=== PATIENT | female | born 1950 | race Caucasian/White ===

== ENCOUNTER 2017-10-09 09:29 | Observation (INO) | payer OTHER, SELFPAY ==
[2017-10-09] VITALS (9 sets, daily range): BP systolic 110–146; BP diastolic 66–91; PULSE 64–85; RESP 10–20; TEMP 36.4–36.9; O2SAT 96–100; BMI 28.2
--- NOTE | 2017-10-09 10:00 | DI.RAD.S_ITS ---
PROCEDURE: XR CHEST 2V INDICATIONS: 67 year-old female with intermittent chest pain for one week. TECHNIQUE: 2 views of the chest were acquired. COMPARISON: None. FINDINGS: Surgical changes and devices: None. Lungs and pleura: No pleural effusions or pneumothorax. Lungs are clear. Mediastinum: Mediastinal contours are normal. Heart size is normal. Bones and chest wall: No suspicious bony abnormalities. Soft tissues appear unremarkable. IMPRESSION: No acute cardiopulmonary disease. Dictated by: Cj Garcia M.D. on 10/09/2017 at 10:17 Approved by: Cj Garcia M.D. on 10/09/2017 at 10:17
[2017-10-09 10:09] LABS: Add Manual Diff / Slide Review NO; Basophils Percent Auto 1.3 % (0-2); Eosinophils Percent Auto 12.8 % (2-4); Hematocrit 38.5 % (36-46); Hemoglobin 13.2 g/dL (12.0-16.0); Mean Corpuscular HGB Conc 34.2 % (30-36); Mean Corpuscular Hemoglobin 30.8 PG (26-34); Mean Corpuscular Volume 90.1 fL (80-100); Monocytes Percent Auto 10.4 % (3-14); Neutrophils Absolute Auto 2300 /uL (3000-5900); Neutrophils Percent Auto 38.5 % (50-75); Platelet Count 215 X10^3/uL (150-400); Red Blood Cell Count 4.28 X10^6/uL (4.0-5.2); Red Cell Distribution Width 13.1 % (11.6-14.8); White Blood Cell Count 5.9 X10^3/uL (4.5-11.0)
[2017-10-09 10:18] LABS: Alanine Aminotransferase 19 IU/L (9-52); Albumin Globulin Ratio 1.4 (1.0-2.8); Alkaline Phosphatase 69 U/L (38-126); Aspartate Aminotransferase 23 IU/L (14-36); BUN Creatinine Ratio 21.4 (6-22); Bilirubin Total 0.6 mg/dL (0.2-1.3); Calcium 9.5 mg/dL (8.4-10.2); Estimated Glomerular Filt Rate > 60.0 mL/min (>60); Globulin 2.8 g/dL (1.7-4.1); Glucose 101 mg/dL (80-110); HEMOLYSIS 18 (0-50); Lipase 73 U/L (23-300); Potassium 4.6 mmol/L (3.4-5.1); Sodium 138 mmol/L (137-145); Total Protein 6.8 g/dL (6.3-8.2)
[2017-10-09] MEDS: ASPIRIN 81 MG TAB 324 MG PO (10:26)
[2017-10-09 10:31] LABS: B Type Natriuretic Peptide < 5.0 (<100); D Dimer < 200 ng/mL (<231); Troponin I < 0.012 ng/mL (0.01-0.034)
[2017-10-09 12:21] LABS: Troponin I < 0.012 ng/mL (0.01-0.034)
--- NOTE | 2017-10-09 13:38 | ED_ITS ---
HPI - Chest Pain General Chief Complaint: Chest Pain Stated Complaint: CHEST PAIN History of Present Illness HPI narrative: HPI 67 female presents for evaluation of 2-3 days intermittent burning epigastric pain as well as sharp/dull left subpectoral pain that is occurring without clear provoking or relieving factors, pain is woken patient from sleep, was greatest at 6 AM prior to arrival. 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 Patient notes 2 to 3 months of mild bilateral lower extremity edema. Patient is a never smoker. Patient has hyperlipidemia and hypothyroidism. Patient reports one stress test many years prior. Patient denies recent immobilization, leg trauma, estrogen use, surgery in the last four weeks, hemoptysis, or malignancy in the last 6 months. M/S/F/SocHx notable for: please see HPI; remainder reviewed with patient and in chart. ROS: Negative constitutional, eye, cardiovascular, pulmonary, GI, , MSK, skin , neurologic, psychiatric, endocrine unless noted in the HPI. Exam Gen: Pleasant, non-toxic appearing, resting comfortably. HEENT: NC, AT, PEERL, EOMI. Resp: Clear to auscultation bilaterally, normal work of breathing. Card: RRR with no M/R/G, no crackles in lung bases, 1+ bilateral pedal edema to the mid calves, no JVD appreciated. GI: NT/ND Vascular: Both ankles, calves, and thighs of equal size, no calf tenderness to palpation bilaterally. MSK: No chest wall TTP. No visible deformities, strength and tone WNL. Skin: Normal color with no visible lesions. Neuro: AO x 3, no facial asymmetry, vision and hearing WNL. Psych: Mood and affect appropriate. Labs / Imaging (pertinent): WBC 5.9, Hb 13.2, Na 138, K 4.6. Troponin (0945)< 0.012, troponin (1:45 AM) < 0.012 BNP <5.0 d-dimer < 200 EKG: SR at 72 bpm, no DE segment depressions, no new ST segment changes, new LBBB, or T-wave changes that would suggest acute ischemia. CXR: No acute cardiopulmonary disease process. MDM Previous chart, nursing note, and vitals reviewed. A: 67 female presents for evaluation of 2-3 days intermittent burning epigastric pain as well as sharp/dull left subpectoral pain that is occurring without clear provoking or relieving factors, pain is woken patient from sleep, was greatest at 6 AM prior to arrival. DDx and Evaluation: * ACS - doubt ACS given a non-ischemic EKG and negative serial troponins. * UA - concern exists for unstable angina, HEART score 5 (Hx - 2, EKG - 0, age - 2, risk factors - 1, troponin - 0; 30 day MACE: 5). * Pericarditis - consider pericarditis unlikely given the lack of DE segment depressions as well as the absence of diffuse ST-segment elevations, lack of reduction of pain when supine, and lack of a friction rub. * Myocarditis - unlikely given the negative troponin and an EKG without characteristic DE-segment or ST-segment changes. * Dissection - dissection is unlikely given symptoms, and lack of mediastinal widening. * PE - Wells' (Signs & Sx of DVT - 0, PE is #1 or equally likelihood - 0, HR > 100 - 0, immobilization of >=3 days or surgery in last 28 days - 0, prior DVT or PE - 0, hemoptysis - 0, malignancy w/ tx in last 6 mo or palliative - 0) 0; as such the patient's negative d-dimer is appropriate for risk stratification/ rule out. * Mediastinal Air - no evidence by CXR or auscultation. * Pneumothorax - no evidence by CXR or physical exam. * MSK - doubt given lack of reproducibility on exam. * Endocarditis - no identifiable risk factors, patient afebrile, no new murmurs appreciated on exam; doubt. * GI (Esophageal rupture, GERD) - esophageal rupture effectively excluded given the lack of mediastinal widening, non-toxic appearance, and lack of identifiable risk factors. While not definitively excluded, further evaluation of GERD is deferred to an outpatient setting. ED Course: Patient given ASA. Vital signs remained stable and within clinically acceptable limits. Disposition: patient admitted for stress test. Impression: Chest Pain. (please reference below for remainder of encounter information) Related Data Home Medications Medication Instructions Recorded Confirmed levothyroxine 100 mcg PO DAILY 10/09/17 10/09/17 Allergies Allergy/AdvReac Type Severity Reaction Status Date / Time No Known Drug Allergies Allergy Verified 10/09/17 10:07 MDM - Chest Pain Lab Data Result diagrams: 10/09/17 09:45 10/09/17 09:45 Lab Results 10/09/17 10/09/17 10/09/17 Range/Units 09:45 09:45 09:45 WBC 5.9 (4.5-11.0) X10^3/uL RBC 4.28 (4.0-5.2) X10^6/uL Hgb 13.2 (12.0-16.0) g/dL Hct 38.5 (36-46) % MCV 90.1 (80-100) fL MCH 30.8 (26-34) PG MCHC 34.2 (30-36) % RDW 13.1 (11.6-14.8) % Plt Count 215 (150-400) X10^3/uL Neut % (Auto) 38.5 L (50-75) % Lymph % (Auto) 37.0 (25-40) % Routt % (Auto) 10.4 (3-14) % Eos % (Auto) 12.8 H (2-4) % Baso % (Auto) 1.3 (0-2) % Neut # (Auto) 2300 L (5825-5325) /uL D-Dimer < 200 (<231) ng/mL Sodium 138 (137-145) mmol/L Potassium 4.6 (3.4-5.1) mmol/L Chloride 101.0 (98-107) mmol/L Carbon Dioxide 29.0 (22-32) mmol/L BUN 15.0 (7-17) mg/dL Creatinine 0.70 (0.52-1.04) mg/dL Estimated GFR > 60.0 (>60) mL/min BUN/Creatinine Ratio 21.4 (6-22) Glucose 101 (80-110) mg/dL Calcium 9.5 (8.4-10.2) mg/dL Total Bilirubin 0.6 (0.2-1.3) mg/dL AST 23 (14-36) IU/L ALT 19 (9-52) IU/L Alkaline Phosphatase 69 (38-126) U/L Troponin I < 0.012 (0.01-0.034) ng/mL B-Natriuretic Peptide < 5.0 L (<100) Total Protein 6.8 (6.3-8.2) g/dL Albumin 4.0 (3.5-5.0) g/dL Globulin 2.8 (1.7-4.1) g/dL Albumin/Globulin Ratio 1.4 (1.0-2.8) Lipase 73 (23-300) U/L 10/09/17 Range/Units 11:45 WBC (4.5-11.0) X10^3/uL RBC (4.0-5.2) X10^6/uL Hgb (12.0-16.0) g/dL Hct (36-46) % MCV (80-100) fL MCH (26-34) PG MCHC (30-36) % RDW (11.6-14.8) % Plt Count (150-400) X10^3/uL Neut % (Auto) (50-75) % Lymph % (Auto) (25-40) % [place] % (Auto) (3-14) % Eos % (Auto) (2-4) % Baso % (Auto) (0-2) % Neut # (Auto) (7935-5391) /uL D-Dimer (<231) ng/mL Sodium (137-145) mmol/L Potassium (3.4-5.1) mmol/L Chloride (98-107) mmol/L Carbon Dioxide (22-32) mmol/L BUN (7-17) mg/dL Creatinine (0.52-1.04) mg/dL Estimated GFR (>60) mL/min BUN/Creatinine Ratio (6-22) Glucose (80-110) mg/dL Calcium (8.4-10.2) mg/dL Total Bilirubin (0.2-1.3) mg/dL AST (14-36) IU/L ALT (9-52) IU/L Alkaline Phosphatase (38-126) U/L Troponin I < 0.012 (0.01-0.034) ng/mL B-Natriuretic Peptide (<100) Total Protein (6.3-8.2) g/dL Albumin (3.5-5.0) g/dL Globulin (1.7-4.1) g/dL Albumin/Globulin Ratio (1.0-2.8) Lipase (23-300) U/L Discharge Plan Departure Prescriptions: No Action levothyroxine 100 mcg Tablet 100 mcg PO DAILY RF: 0
--- NOTE | 2017-10-09 15:15 | PC.NURSE ---
report given to Lynette HANNON for room 212
--- NOTE | 2017-10-09 17:10 | PM.HP.1 ---
History of Present Illness Chief complaint: CHEST PAIN Narrative: Elise Victor is a 67 year old female with hyperlipidemia who awoke this morning with chest pain. She had experienced a similar feeling last night and at 2:00 a.m. but was able to go to sleep without difficulty. She had a feeling of left-sided dull chest tightness lasting most of today and decided to come to the emergency department for evaluation as it persisted. Evaluation in the emergency department was unremarkable and she is admitted for observation and further evaluation. [facility] Medical History Hyperlipidemia (Acute) Hypothyroidism (Acute) Family History Father No problems noted. Mother No problems noted. 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 , who is currently in [place] with her daughter Meds Home Medications Medication Instructions Recorded Confirmed Type levothyroxine 100 mcg PO DAILY 10/09/17 10/09/17 History Generic Name Dose Route Start Last Admin Trade Name Freq PRN Reason Stop Dose Admin Aspirin 325 mg 10/10/17 09:00 Aspirin Ec PO DAILY DEONTE Levothyroxine Sodium 100 mcg 10/10/17 06:00 Synthroid PO 0600 DEONTE Nitroglycerin 0.4 mg 10/09/17 16:58 Nitrostat SL [id number] PRN Chest Pain Allergies Allergy/AdvReac Type Severity Reaction Status Date / Time No Known Drug Allergies Allergy Verified 10/09/17 10:07 Review of Systems Review of Systems All systems reviewed & are unremarkable except as noted in HPI and below Exam Vital Signs (past 8 hours): Vital Signs - 8 hr 10/09/17 09:37 10/09/17 10:36 10/09/17 11:00 Temperature 98.5 F Pulse Rate 80 64 75 Respiratory Rate 15 10 L 15 Blood Pressure 146/79 H Blood Pressure [Left Arm] 118/71 116/72 Pulse Oximetry 100 100 98 10/09/17 12:08 10/09/17 13:09 10/09/17 14:21 Temperature Pulse Rate 78 80 85 Respiratory Rate 16 20 13 Blood Pressure Blood Pressure [Left Arm] 125/71 H 112/66 119/70 Pulse Oximetry 96 97 97 10/09/17 14:40 10/09/17 16:00 Temperature 97.6 F Pulse Rate 78 70 Respiratory Rate 14 16 Blood Pressure 136/77 H Blood Pressure [Left Arm] 110/91 H Pulse Oximetry 96 97 Temperature 97.6 F Temperature 98.5 F Pulse Rate 70 Pulse Rate 78 Pulse Rate 85 Pulse Rate 80 Pulse Rate 78 Pulse Rate 75 Pulse Rate 64 Pulse Rate 80 Respiratory Rate 16 Respiratory Rate 14 Respiratory Rate 13 Respiratory Rate 20 Respiratory Rate 16 Respiratory Rate 15 Respiratory Rate 10 Respiratory Rate 15 Blood Pressure [Left Arm] 110/91 Blood Pressure [Left Arm] 119/70 Blood Pressure [Left Arm] 112/66 Blood Pressure [Left Arm] 125/71 Blood Pressure [Left Arm] 116/72 Blood Pressure [Left Arm] 118/71 Blood Pressure 136/77 Blood Pressure 146/79 Pulse Oximetry 97 Pulse Oximetry 96 Pulse Oximetry 97 Pulse Oximetry 97 Pulse Oximetry 96 Pulse Oximetry 98 Pulse Oximetry 100 Pulse Oximetry 100 Oxygen Delivery Method Room Air Oxygen Delivery Method Room Air Narrative Exam Narrative: General: Patient appears alert, appropriate, comfortable appearing female HEENT mucous membranes pink and moist, extraocular movements intact Neck: Supple Lungs: Clear to auscultation Cardiac: Regular rate and rhythm without appreciable murmur Abdomen: Soft, nontender Extremities without edema Neurologic: Alert, appropriate, no focal neurologic deficits Dermatologic: No rashes skin lesions Musculoskeletal: Mild left costosternal junction and left mid chest costochondral tenderness Objective Labs Result Diagrams: 10/09/17 09:45 10/09/17 09:45 Labs: Laboratory Results - last 24 hr 10/09/17 10/09/17 10/09/17 09:45 09:45 09:45 WBC 5.9 RBC 4.28 Hgb 13.2 Hct 38.5 MCV 90.1 MCH 30.8 MCHC 34.2 RDW 13.1 Plt Count 215 Neut % (Auto) 38.5 L Lymph % (Auto) 37.0 [place] % (Auto) 10.4 Eos % (Auto) 12.8 H Baso % (Auto) 1.3 Neut # (Auto) 2300 L D-Dimer < 200 Sodium 138 Potassium 4.6 Chloride 101.0 Carbon Dioxide 29.0 BUN 15.0 Creatinine 0.70 Estimated GFR > 60.0 BUN/Creatinine Ratio 21.4 Glucose 101 Calcium 9.5 Total Bilirubin 0.6 AST 23 ALT 19 Alkaline Phosphatase 69 Troponin I < 0.012 B-Natriuretic Peptide < 5.0 L Total Protein 6.8 Albumin 4.0 Globulin 2.8 Albumin/Globulin Ratio 1.4 Lipase 73 10/09/17 11:45 WBC RBC Hgb Hct MCV MCH MCHC RDW Plt Count Neut % (Auto) Lymph % (Auto) [place] % (Auto) Eos % (Auto) Baso % (Auto) Neut # (Auto) D-Dimer Sodium Potassium Chloride Carbon Dioxide BUN Creatinine Estimated GFR BUN/Creatinine Ratio Glucose Calcium Total Bilirubin AST ALT Alkaline Phosphatase Troponin I < 0.012 B-Natriuretic Peptide Total Protein Albumin Globulin Albumin/Globulin Ratio Lipase Chest x-ray: No acute cardiopulmonary disease EKG: Sinus rhythm at 72 beats per minute, occasional PVCs, no acute ischemic changes Assessment & Plan Plan: Plan: 1. Atypical chest pain. Heart score 4. Admit to observation, rule out myocardial infarction and follow serial cardiac enzymes on telemetry. Obtain nuclear medicine stress testing tomorrow morning if evaluation otherwise unrevealing, otherwise will obtain Cardiology consultation as indicated. 2. Hyperlipidemia. Check lipid panel. 3. Hypothyroidism. Continue routine medications. 4. Code status: Full code. 5. Disposition: Observation status.
--- NOTE | 2017-10-09 17:38 | P.HP_ITS ---
History of Present Illness Chief complaint: CHEST PAIN Narrative: Elise Victor is a 67 year old female with hyperlipidemia who awoke this morning with chest pain. She had experienced a similar feeling last night and at 2:00 a.m. but was able to go to sleep without difficulty. She had a feeling of left-sided dull chest tightness lasting most of today and decided to come to the emergency department for evaluation as it persisted. Evaluation in the emergency department was unremarkable and she is admitted for observation and further evaluation. [facility] Medical History Hyperlipidemia (Acute) Hypothyroidism (Acute) Family History Father No problems noted. Mother No problems noted. 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 with her , who is currently in [place] with her daughter Meds Home Medications Medication Instructions Recorded Confirmed Type levothyroxine 100 mcg PO DAILY 10/09/17 10/09/17 History Generic Name Dose Route Start Last Admin Trade Name Freq PRN Reason Stop Dose Admin Aspirin 325 mg 10/10/17 09:00 Aspirin Ec PO DAILY DEONTE Levothyroxine Sodium 100 mcg 10/10/17 06:00 Synthroid PO 0600 DEONTE Nitroglycerin 0.4 mg 10/09/17 16:58 Nitrostat SL [id number] PRN Chest Pain Allergies Allergy/AdvReac Type Severity Reaction Status Date / Time No Known Drug Allergies Allergy Verified 10/09/17 10:07 Review of Systems Review of Systems All systems reviewed & are unremarkable except as noted in HPI and below Exam Vital Signs (past 8 hours): Vital Signs - 8 hr 3 10/09/17 09:37 10/09/17 10:36 10/09/17 11:00 Temperature 98.5 F Pulse Rate 80 64 75 Respiratory Rate 15 10 L 15 Blood Pressure 146/79 H Blood Pressure [Left Arm] 118/71 116/72 Pulse Oximetry 100 100 98 3 10/09/17 12:08 10/09/17 13:09 10/09/17 14:21 Temperature Pulse Rate 78 80 85 Respiratory Rate 16 20 13 Blood Pressure Blood Pressure [Left Arm] 125/71 H 112/66 119/70 Pulse Oximetry 96 97 97 3 10/09/17 14:40 10/09/17 16:00 Temperature 97.6 F Pulse Rate 78 70 Respiratory Rate 14 16 Blood Pressure 136/77 H Blood Pressure [Left Arm] 110/91 H Pulse Oximetry 96 97 Temperature 97.6 F Temperature 98.5 F Pulse Rate 70 Pulse Rate 78 Pulse Rate 85 Pulse Rate 80 Pulse Rate 78 Pulse Rate 75 Pulse Rate 64 Pulse Rate 80 Respiratory Rate 16 Respiratory Rate 14 Respiratory Rate 13 Respiratory Rate 20 Respiratory Rate 16 Respiratory Rate 15 Respiratory Rate 10 Respiratory Rate 15 Blood Pressure [Left Arm] 110/91 Blood Pressure [Left Arm] 119/70 Blood Pressure [Left Arm] 112/66 Blood Pressure [Left Arm] 125/71 Blood Pressure [Left Arm] 116/72 Blood Pressure [Left Arm] 118/71 Blood Pressure 136/77 Blood Pressure 146/79 Pulse Oximetry 97 Pulse Oximetry 96 Pulse Oximetry 97 Pulse Oximetry 97 Pulse Oximetry 96 Pulse Oximetry 98 Pulse Oximetry 100 Pulse Oximetry 100 Oxygen Delivery Method Room Air Oxygen Delivery Method Room Air Narrative Exam Narrative: General: Patient appears alert, appropriate, comfortable appearing female HEENT mucous membranes pink and moist, extraocular movements intact Neck: Supple Lungs: Clear to auscultation Cardiac: Regular rate and rhythm without appreciable murmur Abdomen: Soft, nontender Extremities without edema Neurologic: Alert, appropriate, no focal neurologic deficits Dermatologic: No rashes skin lesions Musculoskeletal: Mild left costosternal junction and left mid chest costochondral tenderness Objective Labs Result Diagrams: 10/09/17 09:45 10/09/17 09:45 Labs: Laboratory Results - last 24 hr 10/09/17 10/09/17 10/09/17 09:45 09:45 09:45 WBC 5.9 RBC 4.28 Hgb 13.2 Hct 38.5 MCV 90.1 MCH 30.8 MCHC 34.2 RDW 13.1 Plt Count 215 Neut % (Auto) 38.5 L Lymph % (Auto) 37.0 [place] % (Auto) 10.4 Eos % (Auto) 12.8 H Baso % (Auto) 1.3 Neut # (Auto) 2300 L D-Dimer < 200 Sodium 138 Potassium 4.6 Chloride 101.0 Carbon Dioxide 29.0 BUN 15.0 Creatinine 0.70 Estimated GFR > 60.0 BUN/Creatinine Ratio 21.4 Glucose 101 Calcium 9.5 Total Bilirubin 0.6 AST 23 ALT 19 Alkaline Phosphatase 69 Troponin I < 0.012 B-Natriuretic Peptide < 5.0 L Total Protein 6.8 Albumin 4.0 Globulin 2.8 Albumin/Globulin Ratio 1.4 Lipase 73 10/09/17 11:45 WBC RBC Hgb Hct MCV MCH MCHC RDW Plt Count Neut % (Auto) Lymph % (Auto) [place] % (Auto) Eos % (Auto) Baso % (Auto) Neut # (Auto) D-Dimer Sodium Potassium Chloride Carbon Dioxide BUN Creatinine Estimated GFR BUN/Creatinine Ratio Glucose Calcium Total Bilirubin AST ALT Alkaline Phosphatase Troponin I < 0.012 B-Natriuretic Peptide Total Protein Albumin Globulin Albumin/Globulin Ratio Lipase Chest x-ray: No acute cardiopulmonary disease EKG: Sinus rhythm at 72 beats per minute, occasional PVCs, no acute ischemic changes Assessment & Plan Plan: Plan: 1. Atypical chest pain. Heart score 4. Admit to observation, rule out myocardial infarction and follow serial cardiac enzymes on telemetry. Obtain nuclear medicine stress testing tomorrow morning if evaluation otherwise unrevealing, otherwise will obtain Cardiology consultation as indicated. 2. Hyperlipidemia. Check lipid panel. 3. Hypothyroidism. Continue routine medications. 4. Code status: Full code. 5. Disposition: Observation status.
[2017-10-09 18:02] LABS: Cholesterol 285 mg/dL (140-199); HDL Cholesterol 72 mg/dL (40-60); LDL Cholesterol Calculated 180 mg/dL (<100); Triglycerides 167 mg/dL (35-150)
[2017-10-09 18:24] LABS: Troponin I < 0.012 ng/mL (0.01-0.034)
[2017-10-09] MEDS: ZOLPIDEM 5 MG TABLET PO (22:38)
--- NOTE | 2017-10-09 23:49 | PC.NURSE ---
Evening note: Patient denies SOB or chest pain, denies chest pressure. Said I feel fine. Ox3. VS stable. Using call button appropriately. Aware she is to have cardiac stress test in AM, aware of caffeine/chocolate restriction. Requested sleep aid, Dr Pearson notified, verbal order for Zolpidem 5 mg given. Pt denies concerns or needs tonight.
[2017-10-10] VITALS: O2SAT 98
[2017-10-10 00:03] VITALS: BP 104/62; PULSE 71; RESP 16; TEMP 36.9
[2017-10-10 04:42] VITALS: BP 103/63; PULSE 82; RESP 16; TEMP 36.4; O2SAT 94
[2017-10-10 04:55] LABS: Troponin I < 0.012 ng/mL (0.01-0.034)
[2017-10-10] MEDS: LEVOTHYROXINE 100 MCG TABLET PO (06:01)
[2017-10-10 07:45] VITALS: BP 131/77; PULSE 81; RESP 18; TEMP 36.4; O2SAT 95
[2017-10-10] MEDS: ASPIRIN EC 325 MG TABLET PO (09:57)
--- NOTE | 2017-10-10 11:40 | CM.DPNOTE ---
[facility] ANTOINETTE faxed [facility] the requested initial clinicals to review for pt admit. BALAJI Corrales
--- NOTE | 2017-10-10 13:26 | P.DS_ITS ---
History of Present Illness Chief complaint: CHEST PAIN Narrative: Elise Victor is a 67 year old female with hyperlipidemia who awoke this morning with chest pain. She had experienced a similar feeling last night and at 2:00 a.m. but was able to go to sleep without difficulty. She had a feeling of left-sided dull chest tightness lasting most of today and decided to come to the emergency department for evaluation as it persisted. Evaluation in the emergency department was unremarkable and she is admitted for observation and further evaluation. Discharge Providers Date of admission: 10/09/17 15:09 Primary care physician: uJdy Paige PA-C Discharge provider: Jonel Pearson MD Summary Hospital Course: Discharge diagnosis: 1. Atypical chest pain, ruled out for myocardial infarction and ischemic cardiomyopathy, possible musculoskeletal etiology with costochondritis 2. Hyperlipidemia 3. Hypothyroidism Procedures: Chest x-ray: No acute cardiopulmonary disease EKG: Sinus rhythm at 72 beats per minute, occasional PVCs, no acute ischemic changes Nuclear medicine stress sestamibi heart scan: No reversible ischemia or prior infarct. See full report. Hospital course: The patient was admitted to observation and monitored on telemetry with serial cardiac enzymes, ruling out for myocardial infarction. She had no further chest pain during her hospitalization though did have left chest wall tenderness consistent with possible costochondritis. She underwent provocative stress testing which demonstrated no ischemic changes or symptoms, and normal nuclear medicine imaging per preliminary report. See full report for details. Cholesterol was moderately elevated and she was advised to address this with her primary care provider in follow-up. Status at Discharge Functional status at discharge: independent ambulation Overall status at discharge: patient is back to baseline Time Spent with Patient Total time spent providing and/or coordinating discharge services: Less than 30 minutes Exam Vital Signs (past 8 hours): Vital Signs - 8 hr 3 10/10/17 07:45 Temperature 97.6 F Pulse Rate 81 Respiratory Rate 18 Blood Pressure 131/77 H Pulse Oximetry 95 Pulse Oximetry 95 Oxygen Delivery Method Room Air Narrative Exam Narrative: General: Patient appears alert, appropriate, comfortable appearing female HEENT mucous membranes pink and moist, extraocular movements intact Neck: Supple Lungs: Clear to auscultation Cardiac: Regular rate and rhythm without appreciable murmur Abdomen: Soft, nontender Extremities without edema Neurologic: Alert, appropriate, no focal neurologic deficits Dermatologic: No rashes skin lesions Musculoskeletal: Mild left costosternal junction and left mid chest costochondral tenderness Objective Labs Result Diagrams: 10/09/17 09:45 10/09/17 09:45 Labs: Laboratory Results - last 24 hr 10/09/17 10/09/17 10/10/17 17:17 17:17 04:27 Troponin I < 0.012 < 0.012 Triglycerides 167 H Cholesterol 285 H LDL Cholesterol, Calc 180 H HDL Cholesterol 72 H Discharge Plan Discharge Plan Patient Disposition: Home, Self-Care Discharge comment: Followup with Dr. Litzy Marc (correction, not MAGDA Paige) Provider Discharge Instructions Diet: Diet as Tolerated Activity: Activity as tolerated Discharge Data Primary Care Provider: Judy Paige Attending Provider: Jonel Pearson V Admit Date/Time: 10/09/17 15:09
--- NOTE | 2017-10-11 08:00 | DI.NM.S_ITS ---
DATE OF SERVICE: 10/10/2017 PROCEDURE: Exercise perfusion study. INDICATIONS: Chest pain with underlying hyperlipidemia. RADIOPHARMACEUTICAL: 26.9 mCi of technetium-99m Myoview IV was injected at stress. Please note: This was an exercise stress perfusion study only. CARDIAC STRESS: Patient underwent exercise perfusion study under the supervision of an attending staff. She walked on Sung protocol for 8 minutes 18 seconds and achieved 103% of target heart rate and normal blood pressure response. The patient achieved 10.1 METs of workload. Functional aerobic impairment minus-35%. The patient felt hip pain and some shortness of breath. No chest pain. Baseline rhythm was sinus with some repolarization changes. Stress EKG did not reveal any obvious inducible ischemic changes. In recovery, there were some PVCs. No significant sustained ventricular arrhythmias. RAW DATA: Breast shadow was seen. GATED STUDY: Stress LV ejection fraction 68%. I don't see any obvious wall motion abnormalities. Stress end-diastolic volume 71 mL. Lung/heart ratio 0.24, which is within normal limits. MYOCARDIAL PERFUSION SCAN: Stress supine and stress prone images were compared to each other. Stress supine images revealed small-sized mildly decreased perfusion of distal anterior wall which resolved during prone images, suggestive of breast tissue attenuation artifact. CONCLUSION: I would call this study likely a normal myocardial perfusion study with evidence of breast tissue attenuation artifact which resolved during prone images. Stress LV ejection fraction 68%. The patient walked on Sung protocol for 8 minutes and 18 seconds and achieved 10.1 METs of workload with normal blood pressure and heart rate response. Overall, this is a low risk myocardial perfusion scan. Elise Victor - BALA/vannessa/david doc#: [id number]/job#: [id number] dd: 10/10/2017 13:06:00 dt: 10/10/2017 15:17:00 DICTATING MD/COPIES TO: Susan Sparrow MD COPIES MNE: [id number]
== END 2017-10-10 14:30 | disposition home or self-care (01) ==
LOC: ED 14:29 → AC 15:10
PROVIDERS: Admitting Provider Internal Medicine; Emergency Provider Emergency Medicine; Family Provider Physician Assistant Medical; PCP Physician Assistant Medical; Visit Provider Internal Medicine
DX: R07.9 Chest pain, unspecified (principal); E78.5 Hyperlipidemia, unspecified; E03.9 Hypothyroidism, unspecified
CPT/HCPCS: 36415; 36591; 71046; 78451; 80053; 80061; 83690; 83880; 84484; 85025; 85379; 93005; 93016; 93017; 93018; 93041; 99283; 99285; G0378; A9502

== ENCOUNTER → 2018-04-11 12:08 | Outpatient (CLI) | payer OTHER, SELFPAY ==
[2017-10-09 16:25] VITALS: BMI 28.2
--- NOTE | 2018-04-11 | DI.MRI.S_ITS ---
PROCEDURE: MR HAND LT WO CON INDICATIONS: Left thumb pain. TECHNIQUE: Noncontrast oblique coronal T1 spin echo and T2 fast spin echo with fat saturation, axial and sagittal T2 fast spin echo with fat saturation, through the thumb. COMPARISON: None. FINDINGS: Image quality: Diagnostic. Bones: Visualized osseous structures demonstrate no fractures or bone contusions. There is mild subchondral edema along the 1st carpometacarpal joint with associated cartilage thinning consistent with mild to moderate osteoarthritic changes. Mild osteoarthritic changes are also noted at the triscaphe articulation and the 1st interphalangeal joint. Remaining visualized interphalangeal joints are not well evaluated but mild degenerative changes are also likely present. There is also mild edema within the proximal aspect of the scaphoid along the scapholunate articulation with mild cystic change which is nonspecific. There is also mild edema within the distal aspect of the ulna along the fovea and styloid. There are cystic changes within the 3rd metacarpal head compatible with small ganglion cysts. No definite bony erosions. Soft tissues: The ulnar and radial collateral ligaments appear intact at the 1st metacarpophalangeal and interphalangeal joints. The visualized musculature demonstrates preserved signal and bulk. There is mild peritendinous edema along the flexor tendons of the 1st digit beginning at the level of the 1st metacarpal head and extending distally to the base of the 1st distal phalanx. No discrete soft tissue mass. No suspicious fluid collections. IMPRESSION: 1. Osteoarthritic changes demonstrated including [id number] degeneration of the 1st carpometacarpal joint 2. Small foci of nonspecific mild edema in the proximal scaphoid along the scapholunate articulation are nonspecific and may represent mild degenerative changes. However, this is incompletely evaluated on the current study. 3. Mild edema within the distal ulna is also incompletely evaluated. Given its location, this may represent mild reactive changes or a possible enthesitis. 4. Mild nonspecific peritendinitis along the 1st flexor tendons. No discrete tenosynovial fluid or mass. Dictated by: Roscoe Rich M.D. on 04/11/2018 at 16:02 Approved by: Roscoe Rich M.D. on 04/11/2018 at 16:16
== END ==
PROVIDERS: Family Provider Physician Assistant Medical; PCP Physician Assistant Medical; Visit Provider Physician Assistant
DX: Z13.820 Encounter for screening for osteoporosis (principal); Z78.0 Asymptomatic menopausal state; M79.645 Pain in left finger(s); M18.12 Unilateral primary osteoarthritis of first carpometacarpal joint, left hand; M77.8 Other enthesopathies, not elsewhere classified; Z82.62 Family history of osteoporosis; E07.9 Disorder of thyroid, unspecified
CPT/HCPCS: 73218; 77080

== ENCOUNTER 2021-06-25 17:28 | Emergency (ER) | payer OTHER, SELFPAY ==
[2017-10-09 16:25] VITALS: BMI 28.2
[2021-06-25 17:43] VITALS: BP 188/99; PULSE 88; RESP 18; TEMP 36.7; O2SAT 99; BMI 27.2
--- NOTE | 2021-06-25 17:55 | ED.NECK ---
HPI - Neck Pain/Injury General Chief Complaint: Neck Pain/Injury Stated Complaint: Cervical Radiculopathy Time Seen by Provider: 06/25/21 17:31 History of Present Illness HPI Narrative: 70-year-old female nonsmoker with history of bronchospasm presents with her in the chief complaint of worsening left upper back pain which is sharp and stabbing and worsened with palpation and motion. She does have pain that radiates to her upper shoulder and can even feel in her elbow. She is not dizzy nor weak or lightheaded. She denies any chest pain or shortness of breath. She denies any nausea or vomiting. She has no fatigue or other cardiac equivalents. She had a stress test relatively recently and was completely unremarkable. She had a surgery on her right hand in May and admits that she has been using her left arm much more than usual and may have overdone it. She has no head or neck pain. She has no change in symptoms with motion or palpation of her neck. She had been seen and evaluated a few days ago at another facility and was thought to have a radiculopathy and was given a single dose of Decadron and felt a bit better. She is quite uncomfortable at night and has had a hard time sleeping Related Data Home Medications Medication Instructions Recorded Confirmed levothyroxine 100 mcg tablet 100 mcg PO DAILY 10/09/17 03/04/19 Previous Rx's Medication Instructions Recorded albuterol sulfate 90 mcg/actuation 1 inh INHALATION Q4-6H PRN #18 gram 03/04/19 aerosol inhaler benzonatate 100 mg capsule 100 mg PO BEDTIME #20 cap 03/04/19 cyclobenzaprine 10 mg tablet 10 mg PO TID PRN #14 tab 06/25/21 gabapentin 300 mg capsule 300 mg PO BEDTIME #14 cap 06/25/21 ketorolac 10 mg tablet 10 mg PO Q6H PRN #14 tab 06/25/21 lidocaine 5 % topical patch 1 patch TOP DAILY #15 each 06/25/21 (Lidoderm) methylprednisolone 4 mg tablets in See Rx Instructions .ROUTE 06/25/21 a dose pack (Medrol (Meek)) .COMPLEX #21 ea Allergies Allergy/AdvReac Type Severity Reaction Status Date / Time No Known Drug Allergies Allergy Verified 03/04/19 11:59 Review of Systems Review of Systems Narrative: GENERAL: Denies chills, fatigue, malaise, fever, sweats. HEENT: Denies sinus pain, ear pain, sore throat, difficulty swallowing, dizziness. RESPIRATORY: Denies dyspnea, cough, wheezing, hemoptysis, sputum. CARDIOVASCULAR: Denies chest pain, palpitations, orthopnea, edema, GASTROINTESTINAL: Denies nausea, vomiting, abdominal pain, diarrhea, constipation, melena. : Denies dysuria, frequency, incontinence, hematuria, urinary retention. MUSCULOSKELETAL: See HPI SKIN: Denies rash, skin lesions, or other NEUROLOGIC: Denies weakness, headache, numbness, change in speech, confusion, seizures, incoordination. PSYCHIATRIC: No concerning psychosocial issues. 12 point review of systems is negative except for those stated above Patient History Medical History Hyperlipidemia Hypothyroidism Family History Father No problems noted. Mother No problems noted. 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 with her , who is currently in [place] with her daughter Smoking Status: Never smoker alcohol intake frequency: a few times a month Exam Narrative Exam Narrative: GENERAL: [70 year old patient appears stated age. Well-developed patient, in mild distress. Obviously uncomfortable, complaining of back pain HEAD: Atraumatic. Normocephalic. EYES: Pupils equal round and reactive. Extraocular motions intact. No scleral icterus. No injection or drainage. ENT: Nose without bleeding, purulent drainage. Throat without erythema, tonsillar hypertrophy or exudate. Airway patent. NECK: Trachea midline. Non tender, no painful range of motion, no change with axial load CARDIOVASCULAR: Regular rate and rhythm without murmurs, gallops, or rubs. RESPIRATORY: Clear to auscultation. Breath sounds equal bilaterally. No wheezes, rales, or rhonchi. GASTROINTESTINAL: Abdomen soft, non-tender, nondistended. EXTREMITIES: No edema or joint tenderness. BACK: Tenderness and spasm in the left upper paraspinal musculature, palpation worsens the pain that brought her in. No numbness, tingling or weakness of left upper extremity, neurovascular status intact. NEURO: AOx3. SKIN: No rash or erythema of visible areas Initial Vital Signs Initial Vital Signs: Vital Signs Temperature 98.1 F 06/25/21 17:43 Pulse Rate 88 06/25/21 17:43 Respiratory Rate 18 06/25/21 17:43 Blood Pressure 188/99 H 06/25/21 17:43 Pulse Oximetry 99 06/25/21 17:43 Course Orders Ordered: ED Orders 06/25/21 17:45 EKG-12 Lead Stat 06/25/21 18:00 Complete Blood Count AUTO DIFF Stat Comprehensive Metabolic Panel Stat Troponin & CK Cardiac Panel Stat Discontinued Medications Cyclobenzaprine HCl (Cyclobenzaprine 10 Mg Prepack) 1 bottle MISC SEEINSTR ONE Stop: 06/25/21 18:42 Last Admin: 06/25/21 18:55 Dose: 1 bottle Documented by: Gabapentin (Gabapentin 300 Mg Capsule) 300 mg PO NOW ONE Stop: 06/25/21 18:42 Last Admin: 06/25/21 18:55 Dose: 300 mg Documented by: Ketorolac Tromethamine (Ketorolac 30 Mg/Ml Vial) 30 mg IM NOW ONE Stop: 06/25/21 18:42 Last Admin: 06/25/21 18:55 Dose: 30 mg Documented by: Lidocaine (Lidocaine Patch 1 Each Adh..Patch) 1 each TOP NOW ONE Stop: 06/25/21 18:42 Last Admin: 06/25/21 18:55 Dose: 1 each Documented by: Reevaluation(s) Reevaluation #1: Patient feeling significant improvement after above-stated therapies though there is some residual discomfort in her back. Vital Signs Vital signs: Vital Signs - 8 hr 06/25/21 17:43 06/25/21 18:14 06/25/21 18:30 Temperature 98.1 F Pulse Rate 88 81 88 Respiratory Rate 18 Blood Pressure 188/99 H Pulse Oximetry 99 100 100 MDM - Neck Pain/Injury Lab Data Result diagrams: 06/25/21 18:00 06/25/21 18:00 Labs: Lab Results 06/25/21 06/25/21 Range/Units 18:00 18:00 WBC 6.6 (4.5-11.0) X10^3/uL RBC 4.53 (4.0-5.2) X10^6/uL Hgb 13.8 (12.0-16.0) g/dL Hct 40.2 (36-46) % MCV 88.8 (80-100) fL MCH 30.5 (26-34) PG MCHC 34.3 (30-36) % RDW 12.9 (11.6-14.8) % Plt Count 225 (150-400) X10^3/uL Neut % (Auto) 49.9 L (50-75) % Lymph % (Auto) 36.2 (25-40) % [place] % (Auto) 8.7 (3-14) % Eos % (Auto) 4.5 H (2-4) % Baso % (Auto) 0.7 (0-2) % Neut # (Auto) 3300 (9164-3328) /uL Lymph # (Auto) 2400 (8869-8886) /uL [place] # (Auto) 600 (0-900) /uL Eos # (Auto) 300 (0-450) /uL Baso # (Auto) 0 (0-100) /uL Sodium 137 (137-145) mmol/L Potassium 4.0 (3.4-5.1) mmol/L Chloride 105 (98-107) mmol/L Carbon Dioxide 29 (22-32) mmol/L BUN 15 (7-17) mg/dL Creatinine 0.67 (0.52-1.04) mg/dL Estimated GFR > 60.0 (>60) mL/min BUN/Creatinine Ratio 22.4 H (6-22) Glucose 111 H (80-110) mg/dL Calcium 9.3 (8.4-10.2) mg/dL Total Bilirubin 0.4 (0.2-1.3) mg/dL AST 26 (14-36) IU/L ALT 26 (<35) IU/L Alkaline Phosphatase 72 (38-126) U/L Total Creatine Kinase 42 (30-135) U/L CK-MB (CK-2) TNP CK-MB (CK-2) Rel Index TNP Troponin I < 0.012 (0.01-0.034) ng/mL Total Protein 7.0 (6.3-8.2) g/dL Albumin 4.2 (3.5-5.0) g/dL Globulin 2.8 (1.7-4.1) g/dL Albumin/Globulin Ratio 1.5 (1.0-2.8) ECG Data Interpretation: EKG is normal sinus rhythm rate [75] and free of any signs of ischemia or ectopy. No ST segmental elevation or depression. No T wave inversions MDM Narrative Medical decision making narrative: Multiple diagnoses considered and include (but not limited to) musculoskeletal pain such as thoracic muscle spasm and strain versus cervical radiculopathy versus cardiac ischemia versus dissection versus other. Cardiac ischemia considered unlikely given lack of exertional symptoms, lack of cardiac equivalent such as dizziness, weakness, lightheadedness, shortness of breath, chest pain. Additionally, she has negative troponin and no ischemic changes on EKG. Dissection considered but thought unlikely given her history, physical, reproducible symptoms to palpation and improvement with above-stated therapies. Most likely diagnosis thought to be spasm and inflammation of her paraspinal musculature in the thoracic region, likely due to increased use in the aftermath of her surgery. Return precautions given and questions answered to her apparent satisfaction Discharge Plan Departure Patient Disposition: Home Clinical Impression: Acute thoracic myofascial strain Instructions: Thoracic Back Pain Activity Restrictions/Additional Instructions: *You have been diagnosed with [left upper back pain, most likely musculoskeletal in nature. Your history, physical exam labs are very reassuring and there is no suggestion that this is a cardiac issue or other diagnosis which would require a specific or immediate intervention *What to do: *Please continue to take your regular medications as directed. [x ] New medication prescriptions sent to your pharmacy: [[facility] in [place]] [ ] New medication written as a paper prescription [ ] No new medications given *Please follow up with your primary care provider in 2-3 days, call for an appointment. Let them know you were seen in the Emergency Department and that we ask that you be seen in follow up. We will electronically transmit a record of today's note if your PCP is in our system *If you do not have a primary care provider please contact the [facility] Resource line at [phone]. They will ask some questions about your medical history and help get you set up with a doctor in the community. *Return to Emergency Department if you should have any new, worsening or concerning symptoms, such as [fever greater than 101 F, shaking chills, worsening pain, persistent vomiting or other bothersome symptoms] Prescriptions: New cyclobenzaprine 10 mg tablet 10 mg PO TID PRN (Reason: muscle spasm) Qty: 14 0RF ketorolac 10 mg tablet 10 mg PO Q6H PRN (Reason: pain) Qty: 14 0RF gabapentin 300 mg capsule 300 mg PO BEDTIME Qty: 14 0RF lidocaine [Lidoderm] 5 % adhesive patch,medicated 1 patch TOP DAILY Qty: 15 0RF Rx Instructions: leave on most painful area for 12 hrs methylprednisolone [Medrol (Meek)] 4 mg tablets,dose pack See Rx Instructions .ROUTE .COMPLEX Qty: 21 0RF Rx Instructions: orally per package directions No Action albuterol sulfate 90 mcg/actuation HFA aerosol inhaler 1 inh INHALATION Q4-6H PRN (Reason: shortness of breath) Qty: 18 0RF benzonatate 100 mg capsule 100 mg PO BEDTIME Qty: 20 0RF levothyroxine 100 mcg Tablet 100 mcg PO DAILY 0RF Referrals: Salvador Marc PA-C [Primary Care Provider] -
[2021-06-25 18:12] LABS: Add Manual Diff / Slide Review NO; Basophils Absolute Auto 0 /uL (0-100); Basophils Percent Auto 0.7 % (0-2); Eosinophils Absolute Auto 300 /uL (0-450); Eosinophils Percent Auto 4.5 % (2-4); Hematocrit 40.2 % (36-46); Hemoglobin 13.8 g/dL (12.0-16.0); Lymphocytes Absolute Auto 2400 /uL (1100-4500); Lymphocytes Percent Auto 36.2 % (25-40); Mean Corpuscular HGB Conc 34.3 % (30-36); Mean Corpuscular Hemoglobin 30.5 PG (26-34); Mean Corpuscular Volume 88.8 fL (80-100); Monocytes Absolute Auto 600 /uL (0-900); Monocytes Percent Auto 8.7 % (3-14); Neutrophils Absolute Auto 3300 /uL (1500-7000); Neutrophils Percent Auto 49.9 % (50-75); Platelet Count 225 X10^3/uL (150-400); Red Blood Cell Count 4.53 X10^6/uL (4.0-5.2); Red Cell Distribution Width 12.9 % (11.6-14.8); White Blood Cell Count 6.6 X10^3/uL (4.5-11.0)
[2021-06-25 18:14] VITALS: PULSE 81; O2SAT 100
[2021-06-25 18:23] LABS: Alanine Aminotransferase 26 IU/L (<35); Albumin 4.2 g/dL (3.5-5.0); Albumin Globulin Ratio 1.5 (1.0-2.8); Alkaline Phosphatase 72 U/L (38-126); Aspartate Aminotransferase 26 IU/L (14-36); BUN Creatinine Ratio 22.4 (6-22); Bilirubin Total 0.4 mg/dL (0.2-1.3); Blood Urea Nitrogen 15 mg/dL (7-17); Calcium 9.3 mg/dL (8.4-10.2); Carbon Dioxide 29 mmol/L (22-32); Chloride 105 mmol/L (98-107); Creatine Kinase 42 U/L (30-135); Estimated Glomerular Filt Rate > 60.0 mL/min (>60); Globulin 2.8 g/dL (1.7-4.1); Glucose 111 mg/dL (80-110); HEMOLYSIS < 15 (0-50); Sodium 137 mmol/L (137-145)
[2021-06-25 18:30] VITALS: PULSE 88; O2SAT 100
[2021-06-25 18:35] LABS: Troponin I < 0.012 ng/mL (0.01-0.034)
--- NOTE | 2021-06-25 18:51 | PC.NURSE ---
pt c/o pain in the left shoulder and down the left arm, no injury noted no motor sensory deficits noted/
[2021-06-25] MEDS: GABAPENTIN 300 MG CAPSULE PO (18:55)
[2021-06-25] MEDS: CYCLOBENZAPRINE 10 MG PREPACK 1 BOTTLE MISC (18:55)
[2021-06-25] MEDS: LIDOCAINE PATCH 1 EACH ADH..PATCH TOP (18:55)
[2021-06-25] MEDS: KETOROLAC 30 MG/ML VIAL IM (18:55)
[2021-06-25 19:20] VITALS: BP 174/85; PULSE 89; RESP 18; O2SAT 99
== END 2021-06-25 19:21 | disposition home or self-care (01) ==
PROVIDERS: Emergency Provider Emergency Medicine; Family Provider Physician Assistant Medical; PCP Physician Assistant
DX: S29.012A Strain of muscle and tendon of back wall of thorax, initial encounter (principal); X58.XXXA Exposure to other specified factors, initial encounter
CPT/HCPCS: 36415; 80053; 82550; 84484; 85025; 93005; 93010; 96372; 99284; J1885